=== PATIENT | male | born 1985 | race Caucasian/White ===

== ENCOUNTER 2023-12-06 15:41 | Emergency (ER) | payer OTHER ==
--- NOTE | 2023-12-06 15:48 | ED ---
General Adult HPI - General Source: patient, RN notes reviewed Mode of arrival: ambulatory Limitations: no limitations <Stanley Ross - Last Filed: 12/06/23 15:47> - General Source: patient, RN notes reviewed Mode of arrival: ambulatory Limitations: no limitations <Mohini Braden - Last Filed: 12/06/23 19:12> - General Stated complaint: Laceration on L hand pinky finger Time Seen by Provider: 12/06/23 15:43 - History of Present Illness Initial comments: Quick note 38-year-old male presents emergency department chief complaint of laceration to his left hand fifth digit. Patient states he has a laceration from working on his car from a piece of metal. He is unsure when his last tetanus was. Bleeding is controlled with pressure. (Stanley Ross) 38-year-old male presented to the ER with chief complaint of a laceration. Patient states he was working on his truck and accidentally cut his fifth right distal finger on a piece of metal. Last tetanus unknown. Denies any paresthesias or limited range of motion. Denies any other injuries or complaints. (Mohini Braden) - Related Data Previous Rx's Medication Instructions Recorded Acetaminophen Tab [Tylenol] 1,000 mg PO TID 5 Days tablet 05/26/16 Amoxicillin 500 mg PO Q8H 10 Days day 05/26/16 Ibuprofen [Motrin] 600 mg PO Q6HR PRN #40 day 05/26/16 Allergies Allergy/AdvReac Type Severity Reaction Status Date / Time No Known Allergies Allergy Verified 12/06/23 16:05 Review of Systems ROS Other: All systems not noted in ROS Statement are negative. <Stanley Ross - Last Filed: 12/06/23 15:47> ROS Other: All systems not noted in ROS Statement are negative. <Mohini Braden - Last Filed: 12/06/23 19:12> ROS Statement: Those systems with pertinent positive or pertinent negative responses have been documented in the HPI. Past Medical History Past Medical History: No Reported History History of Any Multi-Drug Resistant Organisms: None Reported Past Surgical History: No Surgical Hx Reported Past Psychological History: No Psychological Hx Reported Past Alcohol Use History: None Reported Past Drug Use History: None Reported <Stanley Ross - Last Filed: 12/06/23 15:47> General Exam <Stanley Ross - Last Filed: 12/06/23 15:47> General appearance: alert, in no apparent distress Head exam: Present: atraumatic, normocephalic, normal inspection Respiratory exam: Present: normal lung sounds bilaterally. Absent: respiratory distress, wheezes, rales, rhonchi, stridor Cardiovascular Exam: Present: regular rate, normal rhythm, normal heart sounds. Absent: systolic murmur, diastolic murmur, rubs, gallop, clicks Neurological exam: Present: alert, oriented X3, CN II-XII intact Skin exam: Present: warm, dry, intact, normal color, other (3 cm laceration to right distal fifth finger pad. Brisk cap refill. Sensation intact. Patient has full active range of motion.). Absent: rash <Mohini Braden - Last Filed: 12/06/23 19:12> - General Exam Comments Initial Comments: Visual Physical Exam Vital signs reviewed General: Well-appearing, nontoxic, no acute distress. Head: Normocephalic, atraumatic Eyes: PERRLA, EOMI ENT: Airway patent Chest: Nonlabored breathing Skin: No visual rash, normal skin tone Neuro: Alert and oriented 3 Musculoskeletal: No gross abnormalities (Stanley Ross) Course Vital Signs 12/06/23 12/06/23 16:02 17:35 Temperature 97.9 F 97.1 F L Pulse Rate 68 78 Respiratory 16 18 Rate Blood Pressure 129/81 122/78 O2 Sat by Pulse 98 99 Oximetry Procedures - Laceration Laceration #1 Consent Obtained: verbal consent Indication: laceration Site: hand Size (cm): 3 Description: linear Anesthetic Used: lidocaine 1% Anesthesia Technique: local infiltration Amount (mls): 2 Pre-repair: wound explored, irrigated extensively, deep structures intact Type of Sutures: nylon Size of Sutures: 4-0 Number of Sutures: 3 Technique: simple, interrupted Patient Tolerated Procedure: well, no complications <Mohini Braden - Last Filed: 12/06/23 19:12> Medical Decision Making <Stanley Ross - Last Filed: 12/06/23 15:47> <Mohini Braden - Last Filed: 12/06/23 19:12> - Medical Decision Making I completed the quick note portion of this chart signed Stanley Ross PA-C (Stanley Ross) Was pt. sent in by a medical professional or institution ([facility], [employer], urgent care, hospital, or care home...) When possible be specific @ -No Did you speak to anyone other than the patient for history (EMS, parent, family, police, friend...)? What history was obtained from this source @ -No Did you review nursing and triage notes (agree or disagree)? Why? @ -I reviewed and agree with nursing and triage notes Were old charts reviewed (outside hosp., previous admission, EMS record, old EKG, old radiological studies, urgent care reports/EKG's, care home records)? Report findings @ -No old charts were reviewed Differential Diagnosis (chest pain, altered mental status, abdominal pain women, abdominal pain men, vaginal bleeding, weakness, fever, dyspnea, syncope, headache, dizziness, GI bleed, back pain, seizure, CVA, palpatations, mental health, musculoskeletal)? @ -Laceration, abrasion, contusion, avulsion, foreign body this list is not meant to be all-inclusive EKG interpreted by me (3pts min.). @ -None X-rays interpreted by me (1pt min.). @ -None done CT interpreted by me (1pt min.). @ -None done U/S interpreted by me (1pt. min.). @ -None done What testing was considered but not performed or refused? (CT, X-rays, U/S, labs)? Why? @ -None What meds were considered but not given or refused? Why? @ -None Did you discuss the management of the patient with other professionals (professionals i.e. [facility], [employer], lab, RT, psych nurse, social media project manager, house carpenter, teacher, air force senior officer, trimming caser)? Give summary @ -No Was smoking cessation discussed for >3mins.? @ -No Was critical care preformed (if so, how long)? @ -No Were there social determinants of health that impacted care today? How? (Homelessness, low income, unemployed, alcoholism, drug addiction, transportation, low edu. Level, literacy, decrease access to med. care, detention, rehab)? @ -No Was there de-escalation of care discussed even if they declined (Discuss DNR or withdrawal of care, Hospice)? DNR status @ -No What co-morbidities impacted this encounter? (DM, HTN, Smoking, COPD, CAD, Cancer, CVA, ARF, Chemo, Hep., AIDS, mental health diagnosis, sleep apnea, morbid obesity)? @ -None Was patient admitted / discharged? Hospital course, mention meds given and route, prescriptions, significant lab abnormalities, going to OR and other pertinent info. @ -Discharged. 38-year-old male presenting to the ER with chief complaint of laceration. History and physical exam completed. Vitals stable. Patient in no signs of distress and nontoxic-appearing. 3 cm superficial laceration to right fifth distal digit. No active bleeding. Right upper extremity neurovascular intact. Tetanus updated. Laceration cleaned using iodine and sterile water. Laceration closed using 3 simple interrupted sutures. Patient tolerated procedure well. Suture care discussed. I advised removal in 10 to 14 days. Strict return parameters discussed. Patient discharged in stable condition with follow-up to PCP. Patient verbally expressed understanding and agreement with care plan. Case discussed with ED attending, Dr. Laura. Undiagnosed new problem with uncertain prognosis? @ -No Drug Therapy requiring intensive monitoring for toxicity (Heparin, Nitro, Insulin, Cardizem)? @ -No Were any procedures done? @ -Yes Diagnosis/symptom? @ -Laceration Acute, or Chronic, or Acute on Chronic? @ -Acute Uncomplicated (without systemic symptoms) or Complicated (systemic symptoms)? @ -Uncomplicated Side effects of treatment? @ -No Exacerbation, Progression, or Severe Exacerbation? @ -No Poses a threat to life or bodily function? How? (Chest pain, [place], [place], pneumonia, PE, COPD, DKA, ARF, appy, cholecystitis, CVA, Diverticulitis, Homicidal, Suicidal, threat to staff... and all critical care pts) @ -No (Mohini Braden) Disposition <Stanley Ross - Last Filed: 12/06/23 15:47> Is patient prescribed a controlled substance at d/c from ED?: No Time of Disposition: 17:31 <Mohini Braden - Last Filed: 12/06/23 19:12> Clinical Impression: Laceration Disposition: HOME SELF-CARE Condition: Stable Instructions (If sedation given, give patient instructions): Care For Your Stitches (DC) Additional Instructions: Have sutures removed in 10 to 14 days. Return to the ER for any new or worse concerns. Referrals: None,Stated [Primary Care Provider] - 1-2 days
[2023-12-06] MEDS: LIDOCAINE 1% INJ 10MG/ML (20 ML MDV) SQ ONE (16:51)
[2023-12-06] MEDS: DIPH,PERTUS(ACELL)TETVAC-LF 0.5 ML VIAL IM ONE (16:51)
[2023-12-06 17:58] VITALS: BP 122/78; PULSE 78; RESP 18; TEMP 97.1
== END 2023-12-06 17:35 | disposition home or self-care (01) ==
LOC: EC 15:41
DX: S61.217A Laceration without foreign body of left little finger without damage to nail, initial encounter (principal); Z23 Encounter for immunization; W26.8XXA Contact with other sharp object(s), not elsewhere classified, initial encounter
CPT/HCPCS: 90715; 12002; 99282; 90471; J2001